=== PATIENT | female | born 1985 | race Hispanic/Latino ===

== ENCOUNTER 2020-09-30 21:45 | Inpatient (IN) | payer BC, OTHER ==
[2020-09-30] MEDS ORDERED: Acetaminophen 325 MG TAB ONE (22:03)
[2020-09-30 22:19] LABS: Hemoglobin 14.6 g/dL (12.0-16.0); Mean Corpuscular HGB CONC 33.6 g/dL (32.0-36.0); Mean Corpuscular Hemoglobin 30.7 pg (27.0-31.0); Mean Corpuscular Volume 91.4 fL (78.0-98.0); Mean Platelet Volume 8.5 fL (7.4-10.4); Platelet Count 266 thou/uL (130-400); RBC Distribution Width 12.2 % (11.5-14.5); Red Blood Cell (RBC) Count 4.74 mill/uL (4.20-5.40); White Blood Cell (WBC) Count 20.5 thou/uL (4.8-10.8)
[2020-09-30 22:21] LABS: Bacteria/HPF None Seen HPF (None Seen); Bilirubin Negative (Negative); Blood, Urine 1+ (Negative); Clarity Clear (Clear); Glucose, Urine (Dipstick) Normal (Negative); Ketone, Urine Greater than 150 mg/dL (Negative); Leukocyte Negative Leu/uL (Negative); Mucous/LPF 1+ LPF (<2+); Nitrite Negative (Negative); Protein, Urine (Dipstick) 20 mg/dL (Neg-Trace); Specific Gravity, Urine 1.026 (1.002-1.036); Urobilinogen Normal mg/dL (Less than 2); WBC/HPF 0-3 HPF (0-3); pH, Urine 5.5 (5.0-9.0)
[2020-09-30 22:34] LABS: Band 33 % (5-11); Lymphocytes 5 % (21-51); MDiff Complete? YES; Monocytes 3 % (0-10); Neutrophil 59 % (42-75); Platelet Morphology Comment Appears Adequate; RBC Morphology Normal
[2020-09-30] MEDS ORDERED: Morphine 4 MG/ML VIAL ONE (23:01)
[2020-09-30] MEDS ORDERED: Ondansetron PF 4 MG/2 ML Vial ONE (23:02)
[2020-09-30] MEDS ORDERED: Piperacillin/Tazobactam 4.5 GM VIAL ONE (23:02)
[2020-09-30 23:11] LABS: ALT (SGPT) 65 U/L (8-55); AST (SGOT) 33 U/L (5-34); Albumin 3.9 g/dL (3.5-5.0); Alkaline Phosphatase 75 U/L (40-110); Anion Gap 16 mmol/L (10-20); BUN (Urea Nitrogen) 5 mg/dL (7.0-18.7); Bilirubin, Total 0.8 mg/dL (0.2-1.2); Calc. Creatinine Clearance 0 mL/min (70-130); Carbon Dioxide 19 mmol/L (22-29); Chloride 102 mmol/L (98-107); Estimated GFR-MDRD Greater than 90; Globulin 3.3 g/dL (2.4-3.5); Glucose 134 mg/dL (70-105); Lipase 14 U/L (8-78); Potassium 3.7 mmol/L (3.5-5.1); Protein, Total 7.2 g/dL (6.0-8.3); Sodium 133 mmol/L (136-145)
--- NOTE | 2020-09-30 23:53 | ULT ---
ULTRASOUND ABDOMEN LIMITED: (RIGHT UPPER QUADRANT) DATE: 09/30/2020 HISTORY: Right upper quadrant abdominal pain with fever in 35-year-old female FINDINGS: Gallbladder:Multiple gallstones. Mild mural thickening or partially 4 mm. No pericholecystic fluid. Common duct: 5 mm. Liver:Diffusely moderately hyperechoic consistent with fatty liver. Nonspecific tiny irregularly-shap ed 0.8 cm heterogeneously hypoechoic lesion in right lobe of liver. Pancreas:Tail obscured by shadowing from bowel gas. No pancreatic ductal dilation identified. Right kidney:No hydronephrosis. IMPRESSION: 1) positive for cholelithiasis. 2) mild mural thickening of gallbladder wall. 3) hepatic steatosis.
[2020-10-01] MEDS ORDERED: Morphine 4 MG/ML VIAL ONE (01:46)
[2020-10-01] MEDS ORDERED: Ondansetron PF 4 MG/2 ML Vial IVP PRN (04:00)
[2020-10-01] MEDS ORDERED: Ondansetron ODT 4 MG TAB SL PRN (04:00)
[2020-10-01 04:08] VITALS: BMI 31.5
[2020-10-01] MEDS: Morphine 2 MG/ML VIAL SLOW IVP PRN ×6 (04:27→20:56)
[2020-10-01] MEDS: Piperacillin/Tazobactam 4.5 GM in Sodium Chloride 0.9% 100 ML IVPB SCH ×2 (06:00→11:17)
--- NOTE | 2020-10-01 07:58 | HP ---
CHIEF COMPLAINT: Right lower quadrant abdominal pain. HISTORY OF PRESENT ILLNESS: The patient is a 35-year-old female who is 9 weeks , who has a 2-day history of right lower quadrant pain associated with nausea. They did an ultrasound showing gallstones. MRI showed appendicitis. PAST MEDICAL HISTORY: Otherwise healthy. PAST SURGERIES: Ectopic surgery. MEDICATIONS: vitamins. ALLERGIES: NO KNOWN DRUG ALLERGIES. SOCIAL HISTORY: She is single, unemployed. No tobacco or alcohol. FAMILY HISTORY: Hypertension, diabetes. PHYSICAL EXAMINATION: VITAL SIGNS: Temperature 98.6, pulse 87, and blood pressure 114/64. GENERAL: She is awake, alert, lying still. HEENT: Unremarkable. LUNGS: Clear. HEART: Regular rate and rhythm. ABDOMEN: Obese, soft, tender in the right lower quadrant to percussion. EXTREMITIES: Unremarkable. LABORATORY DATA: Her white count is 20,000, hemoglobin and hematocrit of 14 and 43, platelet count 266. Electrolytes are fine. She has a positive hCG. ASSESSMENT: Acute appendicitis with . PLAN: Laparoscopic appendectomy. CONSENT: I have discussed planned procedure as well as risk of bleeding, infection, injury to bowel and bladder, need to open, and also loss of . She understands and gives informed consent. Job ID: [id number]
--- NOTE | 2020-10-01 08:03 | MRI ---
PRELIMINARY REPORT/[facility]/EMERGENCY AFTER HOURS PROCEDURE: Receipt of this report by the clinical staff was confirmed with Vonnie Sanon MD by Jen Wilcox on Oct 01, 2020 01:26:00 [employer]. Addendum electronically signed by Marianna Wilcox on October 01, 2020 1:26:18 AM BUILDING W[employer] EXAM: MR Abdomen Without Intravenous Contrast. CLINICAL HISTORY: Pt is a 35 YO G3 [id number] at 9 weeks by dates presenting with one day of abdominal pain, nausea, emes is, PO intolerance and abdominal pain. Pt relaxed on exam, VS significant for fever and tachycardia. OB history pertinent for heterotopic which resulted in D&C. Pt states yesterday she noticed subjective fevers and a dull post-prandial abdominal pain in the RUQ. Since that time she has been u nable to eat. Today her pain localized to the RLQ. Pt adamantly denies vaginal bleeding and vaginal d ischarge. TECHNIQUE: Multiplanar magnetic resonance images of the abdomen without intravenous contrast. CONTRAST: Without COMPARISON: None provided. FINDINGS: GALLBLADDER Gallstones are visualized within the gallbladder. KIDNEYS: No hydronephrosis. UTERUS: There is a gravid uterus. OVARIES: Trace amount of free fluid adjacent to the right ovary which contains a 1.5 cm cyst, which may repres ent a corpus luteum cyst. APPENDIX: The distal appendix is dilated measuring up to 1.0 cm. There is surrounding free fluid and inflammato ry changes in the right mid abdomen surrounding the appendix. Findings are compatible with acute appe ndicitis. The wall of the distal appendix is ill-defined with adjacent T2 hypointensity for which per foration cannot be excluded. No well-defined or drainable fluid collection is present. IMPRESSION: Dilated appendix up to 1.0 cm with adjacent free fluid in the right mid abdomen compatible with acute appendicitis. Ill-defined distal appendix with adjacent T2 hypointensity for which perforation cannot be excluded. No definite free air. No well-defined or drainable fluid collection is present. ELECTRONICALLY SIGNED BY: Nemo Louis MD Oct 01, 2020 1:20:04 AM BUILD[employer]ER This report is intended for review by the ordering physician only, in accordance of law. If you recei ve this report in error, please call [facility] at [phone]. FINAL REPORT EMERGENT AFTER HOURS MRI OF THE ABDOMEN WITHOUT CONTRAST: HISTORY: female with abdominal pain. FINDINGS/IMPRESSION: I agree with the findings and impression given in the preliminary report per [facility] physici an. There is enlargement of the appendix with surrounding edema and inflammatory changes consistent with acute appendicitis. POS: OFF
[2020-10-01 08:31] LABS: SARS-CoV-2 NAA Rapid Test DETECTED (NotDetected)
[2020-10-01] MEDS ORDERED: PROPOFOL 200 MG/20 ML VIAL ONE (10:33)
[2020-10-01] MEDS ORDERED: Dexamethasone 20 MG/5 ML VIAL ONE (10:33)
[2020-10-01] MEDS ORDERED: Succinylcholine 200 MG/10 ml SYRINGE FS ONE (10:33)
[2020-10-01] MEDS ORDERED: Lidocaine 1% PF 5 ML VIAL ONE (10:33)
[2020-10-01] MEDS ORDERED: Glycopyrrolate 0.2 MG/ML 5 ML SYRINGE ONE (10:33)
[2020-10-01] MEDS ORDERED: Rocuronium Bromide 10 MG/ML (10ML VIAL) ONE (10:33)
[2020-10-01] MEDS ORDERED: Lidocaine 1% w/Epinephrine 1:100K 20 ML VIAL ONE (15:22)
[2020-10-01] MEDS ORDERED: Bupivacaine 0.25% HCL 30 ML VIAL ONE (15:22)
[2020-10-01] MEDS ORDERED: Famotidine/PF 20 mg/2ml Vial ONE (16:30)
[2020-10-01] MEDS ORDERED: Fentanyl 100 MCG/2 ML VIAL ONE ×4 (16:30→19:30)
[2020-10-01] MEDS ORDERED: ceFOXitin 1 GM VIAL ONE (17:38)
[2020-10-01] MEDS ORDERED: Ondansetron PF 4 MG/2 ML Vial ONE (18:09)
[2020-10-01] MEDS ORDERED: hydrALAZINE 20 MG/ML VIAL SLOW IVP PRN (18:22)
[2020-10-01] MEDS ORDERED: Dextrose 5% in Water 1,000 ML IV PRN (18:22)
[2020-10-01] MEDS ORDERED: Dextrose 50% Abboject 50 ML SYRINGE SLOW IVP PRN (18:22)
[2020-10-01] MEDS ORDERED: Promethazine HCl 25 MG/ML VIAL IM PRN (18:22)
[2020-10-01] MEDS ORDERED: HYDROmorphone 2 MG/ML VIAL SLOW IVP PRN (18:53)
[2020-10-01] MEDS ORDERED: Ondansetron HCl/PF 4 MG/2 ML Vial IVP PRN (18:53)
[2020-10-01] MEDS: Piperacillin/Tazobactam 3.375 GM in Sodium Chloride 0.9% 100 ML IVPB SCH (20:35)
[2020-10-01] MEDS ORDERED: FLU VACC QS2020-21(6MOS UP)/PF 60 MCG/0.5 ML SYRINGE IM ONE (21:00)
[2020-10-01] MEDS: Morphine 4 MG/ML VIAL SLOW IVP PRN (22:55)
--- NOTE | 2020-10-01 22:57 | OP ---
DATE OF PROCEDURE: 10/01/2020 PREOPERATIVE DIAGNOSIS: Acute appendicitis. PROCEDURES PERFORMED: Laparoscopic appendectomy and drainage of abscess. INDICATIONS: The patient is a 35-year-old female who is in her first trimester , who has been having a 2-day history of right lower quadrant pain, also found to be COVID positive. MRI showed acute appendicitis. FINDINGS: Necrotic ruptured appendix with periappendiceal abscess and purulent fluid in the pelvis. DESCRIPTION OF PROCEDURE: After informed consent was obtained, the patient was taken to the operating room and given general endotracheal anesthesia, placed in supine position. Abdomen was prepped and draped in usual fashion. Local anesthesia was infiltrated subcutaneously and deep, and a subumbilical incision was performed. Subcu was divided sharply. The fascia was grasped and two stay sutures of 0 Vicryl placed through each side of midline. Midline was incised. Digital palpation revealed no local adhesions. A blunt 12 mm trocar was inserted. Pneumoperitoneum was created to a pressure of 15 mmHg. A 0-degree laparoscope was inserted under direct vision. Two 5-mm ports were placed, one suprapubic and one right lateral abdomen. There was obvious purulent fluid along the right gutter and into the pelvis. Sputum trap was attached to the suction and this fluid was aspirated for culture. Then, the appendix was found. The mesoappendix was divided utilizing the LigaSure. The base of appendix was divided with a linear 45 mm white load stapler. The appendix was placed in an Endosac and removed from the abdomen in an Endosac. The abdomen was thoroughly irrigated, especially in the pelvis around the uterus and along the right gutter. A drain was placed and brought out through the suprapubic incision, placed in the pelvis and along the right gutter. Hemostasis was assured. Trocars and retractors were removed. The fascia was closed with interrupted 2-0 Vicryl. Skin was closed with interrupted 4-0 Rapide. Dermabond was applied. Sterile bandage was applied. The patient tolerated the procedure well, transferred to Recovery in good condition. Sponge and needle count verified correct x2. Job ID: [id number]
[2020-10-02] MEDS: Famotidine/PF 20 mg/2ml Vial SLOW IVP SCH ×2 (00:33→08:41)
[2020-10-02] MEDS: Famotidine 20 MG TAB PO SCH ×3 (00:33→20:45)
[2020-10-02] MEDS: Morphine 4 MG/ML VIAL SLOW IVP PRN ×3 (00:59→05:51)
[2020-10-02] MEDS: Piperacillin/Tazobactam 3.375 GM in Sodium Chloride 0.9% 100 ML IVPB SCH ×4 (00:59→20:41)
[2020-10-02 06:29] LABS: #Lymphocytes 0.7 thou/uL (1.20-3.40); #Monocytes 0.4 thou/uL (0.11-0.59); #Neutrophils 13.8 thou/uL (1.40-6.50); %Eosinophils 0.1 % (0.0-10.0); %Lymphocytes 4.5 % (21.0-51.0); %Monocytes 2.8 % (0.0-10.0); %Neutrophils 92.7 % (42.0-75.0); Hemoglobin 12.3 g/dL (12.0-16.0); Mean Corpuscular HGB CONC 33.7 g/dL (32.0-36.0); Mean Corpuscular Hemoglobin 31.5 pg (27.0-31.0); Mean Corpuscular Volume 93.2 fL (78.0-98.0); Mean Platelet Volume 8.6 fL (7.4-10.4); Platelet Count 220 thou/uL (130-400); RBC Distribution Width 12.4 % (11.5-14.5); White Blood Cell (WBC) Count 14.9 thou/uL (4.8-10.8)
[2020-10-02 06:46] LABS: Anion Gap 12 mmol/L (10-20); BUN (Urea Nitrogen) 4 mg/dL (7.0-18.7); Calc. Creatinine Clearance 157 mL/min (70-130); Calcium 8.6 mg/dL (7.8-10.44); Carbon Dioxide 21 mmol/L (22-29); Chloride 106 mmol/L (98-107); Estimated GFR-MDRD Greater than 90; Glucose 124 mg/dL (70-105); Sodium 135 mmol/L (136-145)
--- NOTE | 2020-10-02 08:29 | PRG ---
DATE OF SERVICE: 10/02/2020 SUBJECTIVE: The patient reports pain in the lower abdomen. No nausea or vomiting. No dyspnea. Tolerating full liquids. OBJECTIVE: VITAL SIGNS: On exam, temperature is 98.3, pulse 88, blood pressure 116/71. GENERAL: She is awake, alert, in no apparent distress. ABDOMEN: Soft, nondistended. She has had out 55 mL of her ENRRIQUE drain of serosanguineous fluid. LABORATORY DATA: Her white count is 14.9, H and H 12 and 36, platelet count of 220. Electrolytes are fine. ASSESSMENT: Status post ruptured appendicitis. PLAN: Continue IV antibiotics. Job ID: [id number]
[2020-10-02] MEDS: HYDROcodone/Acetaminophen 10/325 mg Tablet PO PRN ×4 (08:42→21:16)
[2020-10-02] MEDS: Ondansetron PF 4 MG/2 ML Vial IVP PRN (18:41)
[2020-10-02] MEDS: Morphine 2 MG/ML VIAL SLOW IVP PRN (19:05)
[2020-10-03] MEDS: Famotidine/PF 20 mg/2ml Vial SLOW IVP SCH ×3 (01:34→21:22)
[2020-10-03] MEDS: Simethicone Chewable 80 MG TAB PO PRN ×5 (01:35→22:02)
[2020-10-03] MEDS: Piperacillin/Tazobactam 3.375 GM in Sodium Chloride 0.9% 100 ML IVPB SCH ×4 (01:35→20:35)
[2020-10-03] MEDS: HYDROcodone/Acetaminophen 10/325 mg Tablet PO PRN ×5 (01:35→22:02)
[2020-10-03] MEDS: Ondansetron PF 4 MG/2 ML Vial IVP PRN ×2 (01:37→18:39)
[2020-10-03] MEDS: Famotidine 20 MG TAB PO SCH ×2 (08:37→20:35)
--- NOTE | 2020-10-03 09:11 | PRG ---
DATE OF SERVICE: 10/03/2020 SUBJECTIVE: The patient reports she does not feel very good this morning. She is having a lot of nausea. She has not passed anything at her bottom. OBJECTIVE: VITAL SIGNS: On examination, temperature 97.8, pulse 82, blood pressure 134/79. GENERAL: She looks okay. LUNGS: Clear. ABDOMEN: Soft, nondistended, nontender. She has had a total of 90 out her ENRRIQUE, it is fairly serous. ASSESSMENT: Postop ileus, ruptured appendix. PLAN: We will try a suppository, go back to clear liquids. Job ID: [id number]
[2020-10-03 09:58] LABS: #Eosinphils 0.1 thou/uL (0.0-0.7); #Lymphocytes 0.6 thou/uL (1.20-3.40); #Monocytes 0.3 thou/uL (0.11-0.59); #Neutrophils 5.4 thou/uL (1.40-6.50); %Basophils 0.2 % (0.0-1.0); %Eosinophils 1.5 % (0.0-10.0); %Lymphocytes 8.9 % (21.0-51.0); %Neutrophils 84.4 % (42.0-75.0); Hemoglobin 10.9 g/dL (12.0-16.0); Mean Corpuscular HGB CONC 34.2 g/dL (32.0-36.0); Mean Corpuscular Volume 93.5 fL (78.0-98.0); Mean Platelet Volume 8.6 fL (7.4-10.4); Platelet Count 197 thou/uL (130-400); RBC Distribution Width 12.2 % (11.5-14.5); White Blood Cell (WBC) Count 6.4 thou/uL (4.8-10.8)
[2020-10-03] MEDS ORDERED: FLU VACC QS2020-21(6MOS UP)/PF 60 MCG/0.5 ML SYRINGE IM ONE (11:00)
[2020-10-03] MEDS: Bisacodyl 10 MG SUPP PR PRN ×2 (11:40→20:35)
[2020-10-04] MEDS: Piperacillin/Tazobactam 3.375 GM in Sodium Chloride 0.9% 100 ML IVPB SCH ×4 (01:51→18:42)
[2020-10-04] MEDS: HYDROcodone/Acetaminophen 10/325 mg Tablet PO PRN ×5 (01:52→22:22)
[2020-10-04] MEDS: Bisacodyl 10 MG SUPP PR PRN (05:44)
[2020-10-04] MEDS: Simethicone Chewable 80 MG TAB PO PRN ×3 (05:44→18:21)
[2020-10-04] MEDS: Famotidine 20 MG TAB PO SCH ×2 (09:23→22:22)
[2020-10-04] MEDS: Famotidine/PF 20 mg/2ml Vial SLOW IVP SCH ×2 (09:23→22:21)
[2020-10-04] MEDS ORDERED: Polyethylene Glycol 3350 17 GM Packet PO SCH (10:30)
[2020-10-04] MEDS ORDERED: Senokot S 8.6-50 MG TAB PO SCH (10:30)
[2020-10-04 13:01] LABS: #Eosinphils 0.1 thou/uL (0.0-0.7); #Lymphocytes 0.7 thou/uL (1.20-3.40); #Monocytes 0.3 thou/uL (0.11-0.59); #Neutrophils 3.3 thou/uL (1.40-6.50); %Basophils 0.1 % (0.0-1.0); %Eosinophils 1.5 % (0.0-10.0); %Lymphocytes 16.1 % (21.0-51.0); %Monocytes 6.7 % (0.0-10.0); %Neutrophils 75.6 % (42.0-75.0); Hemoglobin 12.4 g/dL (12.0-16.0); Mean Corpuscular HGB CONC 34.1 g/dL (32.0-36.0); Mean Corpuscular Hemoglobin 31.5 pg (27.0-31.0); Mean Corpuscular Volume 92.4 fL (78.0-98.0); Mean Platelet Volume 8.3 fL (7.4-10.4); Platelet Count 245 thou/uL (130-400); RBC Distribution Width 12.4 % (11.5-14.5); Red Blood Cell (RBC) Count 3.93 mill/uL (4.20-5.40); White Blood Cell (WBC) Count 4.4 thou/uL (4.8-10.8)
[2020-10-04 13:20] LABS: Anion Gap 14 mmol/L (10-20); BUN (Urea Nitrogen) 5 mg/dL (7.0-18.7); Calc. Creatinine Clearance 155 mL/min (70-130); Calcium 8.7 mg/dL (7.8-10.44); Carbon Dioxide 21 mmol/L (22-29); Chloride 102 mmol/L (98-107); Estimated GFR-MDRD Greater than 90; Glucose 100 mg/dL (70-105); Potassium 3.1 mmol/L (3.5-5.1); Sodium 134 mmol/L (136-145)
[2020-10-04 13:25] LABS: Phosphorus 1.9 mg/dL (2.3-4.7)
[2020-10-04] MEDS: Senokot S 8.6-50 MG TAB PO SCH (22:23)
[2020-10-05] MEDS: Piperacillin/Tazobactam 3.375 GM in Sodium Chloride 0.9% 100 ML IVPB SCH ×2 (01:03→06:47)
[2020-10-05] MEDS: HYDROcodone/Acetaminophen 10/325 mg Tablet PO PRN (03:33)
[2020-10-05 07:00] LABS: #Eosinphils 0.1 thou/uL (0.0-0.7); #Monocytes 0.3 thou/uL (0.11-0.59); #Neutrophils 2.2 thou/uL (1.40-6.50); %Basophils 0.8 % (0.0-1.0); %Eosinophils 2.8 % (0.0-10.0); %Lymphocytes 27.1 % (21.0-51.0); %Neutrophils 60.4 % (42.0-75.0); Hemoglobin 11.7 g/dL (12.0-16.0); Mean Corpuscular HGB CONC 33.3 g/dL (32.0-36.0); Mean Corpuscular Hemoglobin 30.5 pg (27.0-31.0); Mean Corpuscular Volume 91.6 fL (78.0-98.0); Mean Platelet Volume 7.8 fL (7.4-10.4); Platelet Count 226 thou/uL (130-400); RBC Distribution Width 12.4 % (11.5-14.5); Red Blood Cell (RBC) Count 3.83 mill/uL (4.20-5.40); White Blood Cell (WBC) Count 3.6 thou/uL (4.8-10.8)
[2020-10-05 07:21] LABS: Anion Gap 12 mmol/L (10-20); BUN (Urea Nitrogen) 5 mg/dL (7.0-18.7); Calc. Creatinine Clearance 176 mL/min (70-130); Calcium 8.3 mg/dL (7.8-10.44); Carbon Dioxide 24 mmol/L (22-29); Chloride 103 mmol/L (98-107); Estimated GFR-MDRD Greater than 90; Glucose 80 mg/dL (70-105); Potassium 3.4 mmol/L (3.5-5.1); Sodium 136 mmol/L (136-145)
[2020-10-05] MEDS ORDERED: traMADol HCl 50 MG TAB PO PRN (08:35)
[2020-10-05] MEDS ORDERED: Ibuprofen 600 MG TAB PO PRN (08:35)
[2020-10-05] MEDS ORDERED: Polyethylene Glycol 3350 17 GM Packet PO SCH (09:00)
[2020-10-05] MEDS: Acetaminophen 500 MG TAB PO SCH ×2 (09:27→16:30)
[2020-10-05] MEDS: Simethicone Chewable 80 MG TAB PO PRN ×2 (09:29→16:30)
[2020-10-05] MEDS: Senokot S 8.6-50 MG TAB PO SCH (09:29)
[2020-10-05] MEDS: Famotidine 20 MG TAB PO SCH (09:29)
[2020-10-05] MEDS: Famotidine/PF 20 mg/2ml Vial SLOW IVP SCH (09:30)
[2020-10-05] MEDS: traMADol HCl 50 MG TAB PO PRN ×2 (09:30→16:31)
--- NOTE | 2020-10-05 11:09 | PRG ---
DATE OF SERVICE: 10/05/2020 SUBJECTIVE: Ms. Almeida is a 35-year-old woman, who is , underwent laparoscopic appendectomy 4 days previously for acute ruptured appendix with abscess. The patient is awake and alert today. She reports adequate pain control. She is tolerating clear liquid diet and having bowel movements. OBJECTIVE: VITAL SIGNS: Include blood pressure 140/88, pulse is 76, respiratory rate is 20, temperature is 97.1 degrees Fahrenheit, oxygen saturation is 98% on room air. HEART: Reveals regular rate and rhythm. LUNGS: Clear to auscultation bilaterally. Her breathing is regular and nonlabored. ABDOMEN: Soft with incisional tenderness to palpation. Tez-Quintana drain returns scant amount of serous fluid. LABORATORY FINDINGS: Today includes a CBC with 3600 white blood cells, hemoglobin and hematocrit 11.7 and 35.1 respectively. The platelet count is 226,000. Metabolic profile; sodium 136, potassium 3.4, chloride is 103, bicarb is 24, BUN 5, creatinine 0.58, glucose is 80, magnesium 2.0, and phosphorus is 3.0. IMPRESSIONS: 1. Postoperative day #4, status post laparoscopic appendectomy and drainage of periappendiceal abscess. 2. Gravid uterus. PLAN: 1. Discontinue oral IV, convert pain medications to oral intake. 2. We will change the antibiotics to oral intake as well. 3. We will advance diet. 4. Anticipate discharging the patient later today. 5. The patient had requested OB ultrasound, so she can hear her baby's heart tone. 6. I am ordering an OB ultrasound today. Once viability of the fetus is established, the patient will be discharged home today to follow up with Dr. Vora in the clinic within 10-14 days. Job ID: [id number]
--- NOTE | 2020-10-05 11:49 | ULT ---
Obstetric sonogram transabdominal first trimester limited HISTORY: Recent surgery. Evaluate for heart tones. FINDINGS: Single intrauterine gestation in variable presentation. Heart motion at 169 bpm. [place]-rump length correlates with 9 weeks 1 day gestational age. No evidence of complication.
[2020-10-05 17:19] VITALS: BP 111/78; TEMP 97.5
[2020-10-05] MEDS ORDERED: Amoxicillin/Potassium Clav 875 MG TAB PO SCH (21:00)
--- NOTE | 2020-10-06 12:28 | DIS ---
DATE OF ADMISSION: 10/01/2020 DATE OF DISCHARGE: 10/05/2020 DISCHARGING PHYSICIAN: Philip Moraes DO ADMISSION DIAGNOSIS: Acute appendicitis with abscess. DISCHARGE DIAGNOSES: Acute appendicitis with abscess. OPERATIONS PERFORMED: Laparoscopic appendectomy and drainage of abscess by Dr. Vora on 10/01/2020. HISTORY AND HOSPITAL COURSE: This is a 35-year-old woman, who is , developed acute appendicitis, for which she underwent laparoscopic appendectomy and drainage of abscess on 10/[address] Vora. Following surgery, the patient was admitted to the surgical floor. She was placed on IV antibiotics. This morning, she is ambulating with minimal difficulty. She is tolerating clear liquid diet. Pain was reportedly controlled on oral analgesics. Diet was advanced this morning and oral antibiotics was also initiated. Hours later, the patient is doing well. OB ultrasound shows a viable fetus. The patient is tolerating general diet, remained hemodynamically stable and has been afebrile through this hospitalization. She desires to, and has met criteria for discharge. DISCHARGE INSTRUCTIONS: She will be discharged today with the following instructions; 1. She follows up with Dr. Vora in the clinic. She will call Dr. Vora's office for appointment. 2. Given a prescription for tramadol 50 mg #30 to be taken 1 to 2 p.o. q.6 hours p.r.n. pain. 3. She is also given a prescription for Augmentin 875 mg #10 to be taken one p.o. b.i.d. until all taken. 4. She is encouraged to ambulate daily to avoid complications of venous thromboembolism. 5. She is to follow up with her um nurse with regard to her uterine . The patient indicates understanding information provided to her in the presence of her nurse. I have answered her questions. Job ID: [id number]
== END 2020-10-05 18:40 | disposition home or self-care (01) | DRG 817 ==
LOC: ERS 21:45 → 3SW 10-01 01:59 → 3SE 10-01 07:34 → 3SW 10-01 20:34
PROVIDERS: ADMIT Surgery; ATTEND Surgery
PROC: 0DTJ4ZZ Resection of Appendix, Percutaneous Endoscopic Approach (ICD-10-PCS; principal; 2020-10-01)
PROC: 0D9J4ZZ Drainage of Appendix, Percutaneous Endoscopic Approach (ICD-10-PCS; 2020-10-01)
PROC: 8E0ZXY6 Isolation (ICD-10-PCS; 2020-10-01)
DX: O99.611 Diseases of the digestive system complicating pregnancy, first trimester (principal); U07.1 COVID-19; K35.33 Acute appendicitis with perforation, localized peritonitis, and gangrene, with abscess; O98.511 Other viral diseases complicating pregnancy, first trimester; K56.7 Ileus, unspecified; Z3A.09 9 weeks gestation of pregnancy
CPT/HCPCS: 36415; 74181; 76705; 76856; 80048; 80053; 81003; 81015; 83605; 83690; 83735; 84100; 84702; 85025; 86900; 86901; 87040; 87070; 87076; 87077; 87186; 87205; 88304; 93005; 93976; 94760; 96365; 96366; 96375; 96376; J0694; J1100; J2270; J2405; J2543; J2704; J3010; J3490; J7030; S0020; S0028; U0002